=== PATIENT | female | born 1995 | race Caucasian/White ===

== ENCOUNTER 2019-03-01 08:31 | Emergency (ER) | payer MEDICAID ==
[~2019-03-01] VITALS: Ht 152.4 cm; Wt 52.3 kg
[2019-03-01 08:34] VITALS: BP 119/71
[2019-03-01] MEDS ORDERED: KEN0.1O TP (08:59)
== END 2019-03-01 09:06 | disposition home or self-care (01) ==
LOC: ER 08:33
DX: L25.9 Unspecified contact dermatitis, unspecified cause (principal); Z79.899 Other long term (current) drug therapy
CPT/HCPCS: 99283

== ENCOUNTER 2019-03-03 19:19 | Emergency (ER) | payer MEDICAID ==
[~2019-03-03] VITALS: Ht 147.3 cm; Wt 52.3 kg
[~2019-03-03 19:19] MED LIST: KEN0.1O TP
[2019-03-03 19:27] VITALS: BP 116/74
[2019-03-03] MEDS ORDERED: diphenhydrAMINE 50 mg/ml inj IM ONE (20:35)
[2019-03-03] MEDS ORDERED: triamcinolone acetonide 40mg/ml inj IM ONE (20:35)
== END 2019-03-03 20:55 | disposition home or self-care (01) ==
LOC: ER 19:19
DX: L23.9 Allergic contact dermatitis, unspecified cause (principal)
CPT/HCPCS: 96372; 99283; J1200; J3301